=== PATIENT | male | born 1975 | race Caucasian/White ===

== ENCOUNTER 2022-02-12 09:01 | Emergency (ER) | payer OTHER, SELFPAY ==
--- NOTE | 2022-02-12 09:04 | ED.URI ---
HPI - URI/Sore Throat General Chief Complaint: Upper Respiratory Infection Stated Complaint: uri Time Seen by Provider: 02/12/22 09:37 Source: patient, RN notes reviewed and old records reviewed Mode of arrival: ambulatory Limitations: no limitations History of Present Illness HPI Narrative: 46-year-old male presents to the [facility] with complaints of sinus congestion. Denies fevers. No chest pain or abdominal pain. Patient states symptoms started yesterday. Had tried a couple dxat-era-pantpmg products with minimal relief. Patient reports that his son came home from school and brought home a cold. Reports her to call Dr. Quinn is office and is requesting a Z-Ricardo for his sinus congestion. States that his son called Dr. Quinn is office last week and was given a Z-Ricardo. MD elicited complaint: rhinorrhea and nasal congestion Onset (ago): day(s) (1) Severity: mild Able to tolerate fluids by mouth: Yes Exacerbating factors: nothing Relieving factors: nothing Treatments prior to arrival: cold medicine Related Data Home Medications Medication Instructions Recorded Confirmed cetirizine 10 mg tablet (Zyrtec) 10 mg PO DAILY PRN allergy symptoms 03/24/21 02/12/22 fluticasone propionate 50 1 spray intranasal BID PRN allergy 03/24/21 02/12/22 mcg/actuation nasal symptoms spray,suspension (Flonase Allergy Relief) Allergies Allergy/AdvReac Type Severity Reaction Status Date / Time No Known Allergies Allergy Verified 02/12/22 09:18 Review of Systems Review of Systems: All systems reviewed & are unremarkable except as noted in HPI and below Constitutional: Constitutional: Reports no additional constitutional complaints, Denies chills and Denies fever(s) Eyes: Eyes: Reports no additional eye complaints ENT: Reports as per HPI and Reports nasal congestion Cardiovascular: Cardiovascular: Reports no additional cardiovascular complaints Respiratory: Respiratory: Reports no additional respiratory complaints Gastrointestinal: Gastrointestinal: Reports no additional gastrointestinal complaints Musculoskeletal: Musculoskeletal: Reports no additional musculoskeletal complaints Integumentary/Breasts: Skin/Breast: Reports system reviewed and no additional complaints, except as docu Neurologic: Reports system reviewed and no additional complaints, except as documented Psychiatric: Psychiatric: Reports no additional psychiatric complaints Allergic/Immunologic: Allergic/Immunologic: Reports no additional allergic/immunologic complaints PMFSH Past Medical History Medical History Acute non-recurrent maxillary sinusitis BMI 32.0-32.9,adult BMI 33.0-33.9,adult COVID-19 (~02/17/21) COVID-19 after fully vaccinated with mild case Encounter for wellness examination in adult Obesity (BMI 30.0-34.9) Tinnitus of both ears Family History Family History Mother Patient's mother is in good health Father Patient's father is in good health Grandparent Carcinoma of colon Family history of emphysema Social History Social History Smoking status: Never smoker Alcohol intake: current Substance use: never Substance use type: does not use Comments At the time of my signature, I reviewed and agree with the nursing past medical, surgical, social, and family history. There is no relevant family history pertinent to the patient complaint. Exam Const: General: healthy appearing, comfortable, no acute distress, well developed, alert and well nourished Nutritional Appearance: well nourished Orientation/consciousness: patient oriented x3 Limitations: no limitations HENMT: Head: normal to inspection Ears: external ears normal, TM's normal bilaterally and EAC's normal Face/Nose/Sinus: Normal external nose present Face and sinus: normal facial exam and s
[2022-02-12 09:14] VITALS: BP 120/79; PULSE 58; RESP 16; TEMP 36.3; O2SAT 99
== END 2022-02-12 09:58 | disposition home or self-care (01) ==
PROVIDERS: Emergency Provider Nurse Practitioner; PCP Family Medicine
DX: J01.90 Acute sinusitis, unspecified (principal); Z86.16 Personal history of COVID-19; E66.9 Obesity, unspecified; Z68.29 Body mass index [BMI] 29.0-29.9, adult
CPT/HCPCS: 99213; G0463

== ENCOUNTER 2022-12-30 07:00 | Outpatient (NON) | payer OTHER, SELFPAY | END 2022-12-30 07:01 | disposition home or self-care (01) | PROVIDERS: PCP Family Medicine; Visit Provider Internal Medicine Gastroenterology | DX: Z12.11 Encounter for screening for malignant neoplasm of colon (principal); D12.5 Benign neoplasm of sigmoid colon | CPT/HCPCS: 88305 ==

== ENCOUNTER 2022-12-30 07:10 | Day surgery (SDC) | payer OTHER, SELFPAY ==
[2022-11-05 07:30] VITALS: BMI 32.8
[2022-12-14 13:49] VITALS: BMI 29.5
--- NOTE | 2022-12-30 07:31 | WPDANESEPPF ---
Anes - Initial Pre Proc Eval Procedure: Operation Date: 12/30/22 10:30 Proposed Procedures p Diagnostic Colonoscopy - Jamey Fuentes MD Date/Time: 12/30/22 07:31 Surgeon: Jamey Fuentes MD Pre Op Diagnosis: Family History of Colon Cancer Patient Data Age: 47 Gender: M Height: 1.8 m Weight: 96 kg Allergies Allergy/AdvReac Type Severity Reaction Status Date / Time No Known Allergies Allergy Verified 12/30/22 09:20 Home Medications Medication Instructions Recorded Confirmed Type cetirizine 10 mg tablet (Zyrtec) 10 mg PO DAILY PRN allergy symptoms 03/24/21 12/30/22 History fluticasone propionate 50 1 spray intranasal BID PRN allergy 03/24/21 12/30/22 History mcg/actuation nasal symptoms spray,suspension (Flonase Allergy Relief) lisinopril 40 mg tablet 40 mg PO DAILY #90 tabs 03/04/22 12/30/22 Rx montelukast 10 mg tablet 10 mg PO . q.h.s. #90 tabs 03/04/22 12/30/22 Rx fluticasone furoate 100 See Rx Instructions .Route 06/18/22 12/30/22 Rx mcg-vilanterol 25 mcg/dose .COMPLEX #180 ea inhalation powder (Breo Ellipta) metoprolol succinate 50 mg 50 mg PO DAILY #90 tabs 09/10/22 12/30/22 Rx tablet,extended release 24 hr albuterol sulfate 90 mcg/actuation 1 puff inhalation Q4H PRN 12/29/22 12/30/22 Rx aerosol inhaler (ProAir HFA) shortness of breath or wheezing #18 grams Patient hx anesthesia problems: none Family hx anesthesia problems: none Results Review: All pre-operative results and documents have been reviewed as part of the pre-operative evaluation. [facility] Past Medical History Medical History (Updated 12/30/22 @ 07:40 by Dmitriy Hernandez DO) Acquired generalized delayed ejaculation (~04/05/22) secondary to Zoloft with decreased desire as well Acute non-recurrent maxillary sinusitis BMI 32.0-32.9,adult BMI 33.0-33.9,adult Colon cancer screening COVID-19 (~02/17/21) COVID-19 after fully vaccinated with mild case Encounter for wellness examination in adult Essential (primary) hypertension Family history of colon cancer Male erectile dysfunction, unspecified Mixed hyperlipidemia (03/19/22) total cholesterol 249, triglycerides 240, HDL 44, LDL 164 with ratio 5.7 on 03/19/2022. Obesity (BMI 30.0-34.9) Seborrheic keratosis (~2021) several seborrheic keratoses on back Tinnitus of both ears Family History Family History Mother Patient's mother is in good health Father Patient's father is in good health Grandparent Carcinoma of colon Family history of emphysema Social History Social History (Updated 04/05/22 @ 11:39 by Joan Marquez MA) Smoking status: Never smoker Alcohol intake: current Alcohol use details: socially Substance use: never Substance use type: does not use Lack of Transportation: No Lack of Food: Never True Current Housing: I Have Housing Concerned About Future Housing: No Difficulty Paying Gas/Electric Bills: No Difficulty Paying for Meds: No Currently Unemployed: No Education: Master's Degree or Higher Difficulty w/ Childcare or Family Care: No Living arrangements: with family Spiritual care concerns: No Anes - Eval Final PreProcedure Day of Procedure 12/30/22 07:31 Patient weight: overweight Heart: regular rate and rhythm Lungs: clear to auscultation Airway: Mallampati scale class II Neurological: alert and oriented Last oral intake: >/= 8 hours ASA classification: III Emergent: no Anesthetic plan: proceed Anesthesia type and monitoring: general GIVS and standard monitoring Results Review: All pre-operative results and documents have been reviewed as part of the pre-operative evaluation. Informed Consent: The patient's anesthetic plan and its attendant risks and benefits were discussed with the patient/family/POA. Questions were solicited and answers provided to the satisfaction of the patient/family/POA.
--- NOTE | 2022-12-30 09:22 | PM.HPGS ---
History of Present Illness History of Present Illness Consent: Risks, benefits, and alternatives have been discussed and questions answered. Patient agrees to proceed with procedure. Chief complaint: Family History of Colon Cancer Narrative: Alban Arias is a 47 year old male Presents for screening colonoscopy. Patient's current weight appetite and bowel movements are normal. He denies abdominal pain. He has had no bleeding. Family significant that his father had colon polyps. Grandfather had colon cancer. Patient has had previous colon exams 5 years ago and 10 years ago that were unremarkable. Review of Systems Review of Systems: Review of systems noncontributory. [facility] Past Medical History Medical History (Updated 12/30/22 @ 07:40 by Dmitriy Hernandez, ) Acquired generalized delayed ejaculation (~04/05/22) secondary to Zoloft with decreased desire as well Acute non-recurrent maxillary sinusitis BMI 32.0-32.9,adult BMI 33.0-33.9,adult Colon cancer screening COVID-19 (~02/17/21) COVID-19 after fully vaccinated with mild case Encounter for wellness examination in adult Essential (primary) hypertension Family history of colon cancer Male erectile dysfunction, unspecified Mixed hyperlipidemia (03/19/22) total cholesterol 249, triglycerides 240, HDL 44, LDL 164 with ratio 5.7 on 03/19/2022. Obesity (BMI 30.0-34.9) Seborrheic keratosis (~2021) several seborrheic keratoses on back Tinnitus of both ears Family History Family History Mother Patient's mother is in good health Father Patient's father is in good health Grandparent Carcinoma of colon Family history of emphysema Social History Social History (Updated 04/05/22 @ 11:39 by Joan Marquez MA) Smoking status: Never smoker Alcohol intake: current Alcohol use details: socially Substance use: never Substance use type: does not use Lack of Transportation: No Lack of Food: Never True Current Housing: I Have Housing Concerned About Future Housing: No Difficulty Paying Gas/Electric Bills: No Difficulty Paying for Meds: No Currently Unemployed: No Education: Master's Degree or Higher Difficulty w/ Childcare or Family Care: No Living arrangements: with family Spiritual care concerns: No Meds Home Medications and Allergies Home Medications Medication Instructions Recorded Confirmed Type cetirizine 10 mg tablet (Zyrtec) 10 mg PO DAILY PRN allergy symptoms 03/24/21 12/30/22 History fluticasone propionate 50 1 spray intranasal BID PRN allergy 03/24/21 12/30/22 History mcg/actuation nasal symptoms spray,suspension (Flonase Allergy Relief) lisinopril 40 mg tablet 40 mg PO DAILY #90 tabs 03/04/22 12/30/22 Rx montelukast 10 mg tablet 10 mg PO . q.h.s. #90 tabs 03/04/22 12/30/22 Rx fluticasone furoate 100 See Rx Instructions .Route 06/18/22 12/30/22 Rx mcg-vilanterol 25 mcg/dose .COMPLEX #180 ea inhalation powder (Breo Ellipta) metoprolol succinate 50 mg 50 mg PO DAILY #90 tabs 09/10/22 12/30/22 Rx tablet,extended release 24 hr albuterol sulfate 90 mcg/actuation 1 puff inhalation Q4H PRN 12/29/22 12/30/22 Rx aerosol inhaler (ProAir HFA) shortness of breath or wheezing #18 grams Allergies Allergy/AdvReac Type Severity Reaction Status Date / Time No Known Allergies Allergy Verified 12/30/22 09:20 Exam Narrative: Physical exam reveals patient to be alert. Signs stable. HEENT exam is unremarkable. Patient is anicteric. Lungs are clear to auscultation and PERC heart is without murmur or extra sounds. Abdomen bowel sounds are present soft nontender with no organomegaly. Digital external rectal exam is normal. Assessment and Plan Assessment and plan (1) Family history of colon cancer: Code(s): Z80.0 - Family history of malignant neoplasm of digestive organs Status: Acute Assessmen
[2022-12-30 09:23] VITALS: PULSE 86; RESP 20; TEMP 36.6; O2SAT 100; BMI 31.3
[2022-12-30] MEDS: LACTATED RINGERS 1,000 ML 150 ML IV CONT (09:33)
[2022-12-30 11:30] VITALS: BP 96/66; PULSE 78; RESP 20; O2SAT 95
[2022-12-30 11:40] VITALS: BP 112/73; PULSE 73; RESP 18; O2SAT 97
[2022-12-30 11:50] VITALS: BP 124/82; PULSE 70; RESP 16; O2SAT 100
--- NOTE | 2022-12-30 13:53 | WPDANESPN ---
Anes - Prog Note Post-Op Date/Time: 12/30/22 13:53 Cardiovascular status: normal Respiratory status: normal Airway patency: baseline Mental status: baseline Post-Op hydration status: normal Vital Signs: Last Vital Signs Temp 36.6 C 12/30/22 09:23 Pulse 70 12/30/22 11:50 Resp 16 12/30/22 11:50 BP 124/82 12/30/22 11:50 Pulse Ox 100 12/30/22 11:50 O2 Del Method Room Air 12/30/22 11:50 Pain Score (VAS): 0 I/O: Intake & Output 12/29/22 12/30/22 12/30/22 23:59 07:59 15:59 Intake Total 950 Balance 950 Post-procedural complaints: none Patient Feedback: Patient satisfied with anesthetic care. Other Findings: Patient vital signs back to baseline. Patient denies nausea and vomiting. Patient's pain under control. Patient OK for discharge.
== END 2022-12-30 11:57 | disposition home or self-care (01) ==
PROVIDERS: PCP Family Medicine; Visit Provider Internal Medicine Gastroenterology
PROC: 0DJD8ZZ Inspection of Lower Intestinal Tract, Via Natural or Artificial Opening Endoscopic (ICD-10-PCS; CPT 45378; principal; 2022-12-30 10:30)
DX: Z80.0 Family history of malignant neoplasm of digestive organs (principal); D12.5 Benign neoplasm of sigmoid colon; K64.8 Other hemorrhoids
CPT/HCPCS: 45385